=== PATIENT | female | born 1960 | race Two or more races ===

== ENCOUNTER 2017-05-18 07:35 | Inpatient (IN) | payer MEDICAID, OTHER ==
[2017-05-18] VITALS (23 sets, daily range): BP systolic 84–115; BP diastolic 48–70
[~2017-05-18] VITALS: Ht 162.6 cm; Wt 76.1 kg
[~2017-05-18 07:35] MED LIST: CARI-277; DIAZ10TA3; HYDR7.5T PO; METO10TA3; NOR10T PO; OMEP20TA44; WARF3TAB20
[2017-05-18 08:46] LABS: Basophils # (auto) 0.1 uL; Basophils % (auto) 0.6 % (0.0-2.0); Eosinophils # (auto) 0 uL; Lymphocytes # (auto) 1.7 uL; Mean Corpuscular Hemoglobin 30.7 pg (28.0-32.0); Mean Corpuscular Hgb Conc. 33.1 g/dL (32.0-36.0); Platelet Count (auto) 204 10^3/uL (140-450)
[2017-05-18 08:48] LABS: Eosinophils % (auto) 0.2 % (0.0-7.0); Hematocrit 14.2 % (36.0-46.0); Lymphocytes % (auto) 13.6 % (10.0-50.0); Mean Corpuscular Volume 92.7 fL (80.0-100.0); Monocytes % (auto) 8.5 % (0.0-12.0); Neutrophils # (auto) 9.4 uL; Neutrophils % (auto) 77.1 % (37.0-80.0); Red Blood Cells 1.53 10^6/uL (4.0-5.20); Red Cell Distribution Width 16.9 % (11.8-14.3); White Blood Cell 12.2 10^3/uL (4.4-10.8)
[2017-05-18 08:53] LABS: Hemoglobin 4.7 g/dL (12.2-16.2)
[2017-05-18 08:59] LABS: Alanine Aminotransferase 30 U/L (13-56); Albumin 3.6 g/dL (3.4-5.0); Anion Gap 13 (5-15); Aspartate Aminotransferase 88 U/L (15-37); BUN/Creatinine Ratio 20.7; Blood Alcohol < 3.0 mg/dL (0-5); Blood Urea Nitrogen 28 mg/dL (7-18); Calcium 8.2 mg/dL (8.5-10.1); Carbon Dioxide 20 mmol/L (21-32); Chloride 104 mmol/L (98-107); GFR African American 52 mL/min; GFR Non-African American 43 mL/min; Glucose 102 mg/dL (74-106); Magnesium 2.2 mg/dL (1.6-2.6); Potassium 4.3 mmol/L (3.5-5.1); Sodium 137 mmol/L (136-145)
[2017-05-18 09:00] LABS: Lactic Acid w/Reflex 3.2 mmol/L (0.4-2.0)
[2017-05-18] MEDS ORDERED: IOHEXOL 300 MG/ML 100ML BOTTLE IJ ONE (09:01)
[2017-05-18 09:03] LABS: Alkaline Phosphatase 58 U/L (45-117); Bilirubin, Total 0.7 mg/dL (0.2-1.0); Total Protein 6.5 g/dL (6.4-8.2)
[2017-05-18] MEDS ORDERED: VANCOMYCIN 1GM/250ML 250 ML IV ONE (09:30)
[2017-05-18] MEDS ORDERED: PIPERACILLIN-TAZOB 3.375GM 50 ML IV ONE (09:30)
[2017-05-18 09:56] LABS: INR > 10 (0.9-1.15)
[2017-05-18] MEDS ORDERED: phytonadione 10 MG in SODIUM CHL 0.9% 50 ML IV ONE (10:00)
[2017-05-18] MEDS ORDERED: PHYTONADIONE (VIT K)10 MG/ML 1ML VIAL SUBCUT ONE (10:15)
[2017-05-18] MEDS ORDERED: METOCLOPRAMIDE HCL 10 MG TAB PO PRN (10:15)
[2017-05-18] MEDS ORDERED: DEXTROSE (50%) 50ML SYRG IV PRN (10:30)
[2017-05-18] MEDS ORDERED: MORPHINE SULFATE 4 MG/ML SYR/VIAL IV PRN (10:30)
[2017-05-18] MEDS ORDERED: ACETAMINOPHEN 325 MG TAB PO PRN (10:30)
[2017-05-18] MEDS ORDERED: VANCOMYCIN PER PHARMACY 0 MG IV SCH (10:30)
[2017-05-18] MEDS ORDERED: LORazepam 2MG/ML-1ML VIAL IV PRN (10:30)
[2017-05-18] MEDS ORDERED: DOCUSATE SOD 100 MG CAP PO PRN (10:30)
[2017-05-18] MEDS ORDERED: NITROGLYCERIN 0.4 MG SL TAB SL PRN (10:30)
[2017-05-18] MEDS ORDERED: PANTOPRAZOLE 40 MG/10 ML VIAL IV ONE (10:30)
[2017-05-18] MEDS: SODIUM CHLORIDE 0.9% 1,000 ML IV SCH (10:51)
[2017-05-18] MEDS: InsuLIN REG 1unit/0.01ml Soln (100units/ml) SC SCH ×3 (11:08→22:15)
[2017-05-18] MEDS: ACCU-CHEK COMFORT CURVE STRIP VI SCH ×3 (11:08→22:06)
[2017-05-18] MEDS: MORPHINE SULFATE 4 MG/ML SYR/VIAL IV PRN ×3 (11:09→20:35)
[2017-05-18] MEDS: ONDANSETRON HCL 4 MG/2 ML VIAL IV PRN ×3 (11:10→20:35)
[2017-05-18 11:15] LABS: Urine Bacteria FEW /hpf (None Seen); Urine Blood 1+ /uL (Negative); Urine Specific Gravity 1.026 (1.001-1.035); Urine WBC 8 /hpf (0 - 5)
[2017-05-18 11:17] LABS: Alcohol, Urine < 3.0 mg/dL (0-5); Amphetamine Screen, Urine NEGATIVE (NEGATIVE); Barbiturate Scree,Urine NEGATIVE (NEGATIVE); Benzodiazephine Screen, Urine NEGATIVE (NEGATIVE); Cannabinoid Screen, Urine NEGATIVE (NEGATIVE); Cocaine Screen, Urine NEGATIVE (NEGATIVE); Opiate Scree,Urine NEGATIVE (NEGATIVE); Phencyclidine Screen, Urine NEGATIVE (NEGATIVE)
[2017-05-18] MEDS: VANCOMYCIN 1GM/250ML 250 ML IV SCH (12:46)
[2017-05-18] MEDS: CARISOPRODOL 350 MG TAB PO PRN (13:45)
[2017-05-18] MEDS: PIPERACILLIN-TAZOB 3.375GM 50 ML IV SCH ×2 (16:11→22:11)
[2017-05-18] MEDS ORDERED: FAMOTIDINE 20 MG TAB PO SCH (22:00)
[2017-05-19] VITALS (10 sets, daily range): BP systolic 123–143; BP diastolic 64–74
[2017-05-19] MEDS: ONDANSETRON HCL 4 MG/2 ML VIAL IV PRN (00:11)
[2017-05-19] MEDS: MORPHINE SULFATE 4 MG/ML SYR/VIAL IV PRN ×2 (00:11→21:00)
[2017-05-19] MEDS: SODIUM CHLORIDE 0.9% 1,000 ML IV SCH ×2 (03:23→20:00)
[2017-05-19] MEDS: HYDROcodone-ACET 10/325MG TAB PO PRN ×4 (03:35→13:33)
[2017-05-19] MEDS: PIPERACILLIN-TAZOB 3.375GM 50 ML IV SCH ×6 (03:54→23:12)
[2017-05-19 04:16] LABS: Basophils # (auto) 0 uL; Basophils % (auto) 0.5 % (0.0-2.0); Eosinophils # (auto) 0 uL; Eosinophils % (auto) 0.5 % (0.0-7.0); Hematocrit 25.2 % (36.0-46.0); Hemoglobin 8.7 g/dL (12.2-16.2); Lymphocytes # (auto) 1.3 uL; Lymphocytes % (auto) 14.6 % (10.0-50.0); Mean Corpuscular Hemoglobin 30.1 pg (28.0-32.0); Mean Corpuscular Hgb Conc. 34.7 g/dL (32.0-36.0); Monocytes # (auto) 0.7 uL; Monocytes % (auto) 8.3 % (0.0-12.0); Neutrophils # (auto) 6.6 uL; Neutrophils % (auto) 76.1 % (37.0-80.0); Nucleated Red Blood Cells % 0.1 %; Platelet Count (auto) 130 10^3/uL (140-450); Red Cell Distribution Width 15.8 % (11.8-14.3); White Blood Cell 8.6 10^3/uL (4.4-10.8)
[2017-05-19 04:35] LABS: Albumin 3.2 g/dL (3.4-5.0); BUN/Creatinine Ratio 21.6; Bilirubin, Total 1.1 mg/dL (0.2-1.0); Calcium 7.5 mg/dL (8.5-10.1); Potassium 3.8 mmol/L (3.5-5.1); Total Protein 6.3 g/dL (6.4-8.2)
[2017-05-19] MEDS: InsuLIN REG 1unit/0.01ml Soln (100units/ml) SC SCH ×4 (06:51→22:00)
[2017-05-19] MEDS: ACCU-CHEK COMFORT CURVE STRIP VI SCH ×5 (06:51→23:14)
[2017-05-19 07:31] LABS: Hematocrit 25.3 % (36.0-46.0); Hemoglobin 8.6 g/dL (12.2-16.2)
[2017-05-19 08:33] LABS: INR 1.06 (0.9-1.15); Partial Thromboplastin Time 26.9 sec (22.64-33.71); Prothrombin Time 11.6 sec (9.37-12.3)
[2017-05-19] MEDS: MULTIPLE VITAMIN TAB PO SCH (09:54)
[2017-05-19] MEDS: PANTOPRAZOLE 40 MG/10 ML VIAL IV SCH (09:54)
[2017-05-19] MEDS ORDERED: CLON1TAB3 PO (10:24)
[2017-05-19] MEDS ORDERED: LEVO25TA6 PO (10:24)
[2017-05-19] MEDS: VANCOMYCIN 1GM/250ML 250 ML IV SCH (13:01)
[2017-05-19] MEDS ORDERED: ENOXAPARIN SOD 80 MG/0.8ML SYRINGE SC ONE (13:15)
[2017-05-19] MEDS: CARISOPRODOL 350 MG TAB PO PRN (18:52)
[2017-05-19] MEDS: ENOXAPARIN SOD 80 MG/0.8ML SYRINGE SC SCH (22:00)
[2017-05-20] MEDS: MORPHINE SULFATE 4 MG/ML SYR/VIAL IV PRN ×6 (01:00→21:51)
[2017-05-20 05:00] VITALS: BP 155/73
[2017-05-20] MEDS: PIPERACILLIN-TAZOB 3.375GM 50 ML IV SCH (05:05)
[2017-05-20] MEDS: InsuLIN REG 1unit/0.01ml Soln (100units/ml) SC SCH (06:16)
[2017-05-20 09:00] VITALS: BP 151/75
[2017-05-20] MEDS: PANTOPRAZOLE 40 MG/10 ML VIAL IV SCH (10:45)
[2017-05-20] MEDS: MULTIPLE VITAMIN TAB PO SCH (10:45)
[2017-05-20] MEDS: ENOXAPARIN SOD 80 MG/0.8ML SYRINGE SC SCH ×2 (10:45→21:51)
[2017-05-20 11:52] LABS: Potassium 3.4 mmol/L (3.5-5.1)
[2017-05-20 13:00] VITALS: BP 138/70
[2017-05-20 13:47] LABS: Albumin 3.2 g/dL (3.4-5.0); Calcium 8.8 mg/dL (8.5-10.1)
[2017-05-20 13:49] LABS: BUN/Creatinine Ratio 21.7
[2017-05-20 13:50] LABS: Bilirubin, Total 1.1 mg/dL (0.2-1.0); Total Protein 6.5 g/dL (6.4-8.2)
[2017-05-20] MEDS ORDERED: POTASSIUM CHL 10 Meq TABLET PO ONE (14:45)
[2017-05-20 17:00] VITALS: BP 153/88
[2017-05-20] MEDS ORDERED: WARFARIN SODIUM 5 MG TAB PO ONE (17:00)
[2017-05-20] MEDS: HYDROcodone-ACET 10/325MG TAB PO PRN (19:53)
[2017-05-20] MEDS: clonazePAM 0.5 MG TAB PO PRN (19:54)
[2017-05-20 22:00] VITALS: BP 153/86
[2017-05-21] MEDS: MORPHINE SULFATE 4 MG/ML SYR/VIAL IV PRN ×6 (01:56→22:28)
[2017-05-21] MEDS: HYDROcodone-ACET 10/325MG TAB PO PRN ×3 (04:32→19:55)
[2017-05-21 05:54] LABS: Basophils # (auto) 0 uL; Basophils % (auto) 0.6 % (0.0-2.0); Eosinophils # (auto) 0.1 uL; Eosinophils % (auto) 2.4 % (0.0-7.0); Hematocrit 30.1 % (36.0-46.0); Lymphocytes # (auto) 1.3 uL; Lymphocytes % (auto) 22.5 % (10.0-50.0); Mean Corpuscular Hgb Conc. 33.1 g/dL (32.0-36.0); Mean Corpuscular Volume 90.6 fL (80.0-100.0); Monocytes # (auto) 0.5 uL; Monocytes % (auto) 9.2 % (0.0-12.0); Neutrophils # (auto) 3.8 uL; Neutrophils % (auto) 65.3 % (37.0-80.0); Nucleated Red Blood Cells % 0.2 %; Platelet Count (auto) 191 10^3/uL (140-450); Red Blood Cells 3.32 10^6/uL (4.0-5.20); Red Cell Distribution Width 15.6 % (11.8-14.3); White Blood Cell 5.8 10^3/uL (4.4-10.8)
[2017-05-21 05:57] VITALS: BP 143/89
[2017-05-21 06:14] LABS: INR 1.59 (0.9-1.15); Partial Thromboplastin Time 31.5 sec (22.64-33.71); Prothrombin Time 17.4 sec (9.37-12.3)
[2017-05-21 08:00] VITALS: BP 133/75
[2017-05-21 09:00] VITALS: BP 133/75
[2017-05-21] MEDS: MULTIPLE VITAMIN TAB PO SCH (10:00)
[2017-05-21] MEDS: PANTOPRAZOLE 40 MG TAB PO SCH (10:00)
[2017-05-21] MEDS: ENOXAPARIN SOD 80 MG/0.8ML SYRINGE SC SCH ×2 (10:08→21:58)
[2017-05-21] MEDS: clonazePAM 0.5 MG TAB PO PRN (12:37)
[2017-05-21 13:00] VITALS: BP 151/90
[2017-05-21 17:00] VITALS: BP 145/73
[2017-05-21] MEDS ORDERED: WARFARIN SODIUM 2.5 MG TAB PO ONE (17:00)
[2017-05-21 21:41] VITALS: BP 134/68
[2017-05-22] MEDS: clonazePAM 0.5 MG TAB PO PRN ×2 (00:40→15:31)
[2017-05-22] MEDS: MORPHINE SULFATE 4 MG/ML SYR/VIAL IV PRN ×4 (02:26→14:57)
[2017-05-22] MEDS: HYDROcodone-ACET 10/325MG TAB PO PRN ×2 (04:12→13:17)
[2017-05-22 04:54] VITALS: BP 141/78
[2017-05-22 06:23] LABS: INR 2.02 (0.9-1.15); Partial Thromboplastin Time 21.1 sec (22.64-33.71); Prothrombin Time 22.2 sec (9.37-12.3)
[2017-05-22 06:43] LABS: Basophils # (auto) 0 uL; Basophils % (auto) 0.6 % (0.0-2.0); Eosinophils # (auto) 0.2 uL; Eosinophils % (auto) 2.9 % (0.0-7.0); Hematocrit 30.7 % (36.0-46.0); Hemoglobin 10.2 g/dL (12.2-16.2); Lymphocytes # (auto) 1.5 uL; Lymphocytes % (auto) 22.2 % (10.0-50.0); Mean Corpuscular Hemoglobin 30.3 pg (28.0-32.0); Mean Corpuscular Hgb Conc. 33.3 g/dL (32.0-36.0); Mean Corpuscular Volume 90.8 fL (80.0-100.0); Monocytes # (auto) 0.6 uL; Monocytes % (auto) 9.3 % (0.0-12.0); Neutrophils # (auto) 4.3 uL; Nucleated Red Blood Cells % 0.1 %; Platelet Count (auto) 198 10^3/uL (140-450); Red Blood Cells 3.38 10^6/uL (4.0-5.20); Red Cell Distribution Width 15.6 % (11.8-14.3); White Blood Cell 6.6 10^3/uL (4.4-10.8)
[2017-05-22] MEDS: CARISOPRODOL 350 MG TAB PO PRN (08:59)
[2017-05-22 09:00] VITALS: BP 156/87
[2017-05-22 09:50] VITALS: BP 156/87
[2017-05-22] MEDS: PANTOPRAZOLE 40 MG TAB PO SCH (09:57)
[2017-05-22] MEDS: MULTIPLE VITAMIN TAB PO SCH (09:57)
[2017-05-22] MEDS: ENOXAPARIN SOD 80 MG/0.8ML SYRINGE SC SCH (09:57)
[2017-05-22] MEDS ORDERED: WARFARIN SODIUM 2 MG TAB PO ONE (17:00)
== END 2017-05-22 17:12 | disposition home or self-care (01) | DRG 663 ==
LOC: ER 07:35 → TELE 07:36 → TELE-WESTW 05-19 10:05 → WEST WING 05-20 12:06
PROVIDERS: ADMIT Internal Medicine; ATTEND Internal Medicine
PROC: 30233L1 Transfusion of Nonautologous Fresh Plasma into Peripheral Vein, Percutaneous Approach (ICD-10-PCS; principal; 2017-05-18)
PROC: 30233N1 Transfusion of Nonautologous Red Blood Cells into Peripheral Vein, Percutaneous Approach (ICD-10-PCS; 2017-05-18)
PROC: 30233K1 Transfusion of Nonautologous Frozen Plasma into Peripheral Vein, Percutaneous Approach (ICD-10-PCS; 2017-05-18)
PROC: 02HV33Z Insertion of Infusion Device into Superior Vena Cava, Percutaneous Approach (ICD-10-PCS; 2017-05-18)
DX: D64.9 Anemia, unspecified (principal); N17.0 Acute kidney failure with tubular necrosis; G93.41 Metabolic encephalopathy; I25.3 Aneurysm of heart; R65.10 Systemic inflammatory response syndrome (SIRS) of non-infectious origin without acute organ dysfunction; I71.2 Thoracic aortic aneurysm, without rupture; F11.20 Opioid dependence, uncomplicated; N18.3 Chronic kidney disease, stage 3 (moderate); E83.51 Hypocalcemia; S02.2XXA Fracture of nasal bones, initial encounter for closed fracture; E03.9 Hypothyroidism, unspecified; T45.515A Adverse effect of anticoagulants, initial encounter; T14.8XXA Other injury of unspecified body region, initial encounter; W18.39XA Other fall on same level, initial encounter; F41.9 Anxiety disorder, unspecified; G89.29 Other chronic pain; R29.6 Repeated falls; Z59.0 Homelessness; Z79.01 Long term (current) use of anticoagulants; Z80.49 Family history of malignant neoplasm of other genital organs; Z83.3 Family history of diabetes mellitus; Z91.19 Patient's noncompliance with other medical treatment and regimen; Z95.2 Presence of prosthetic heart valve; Y93.89 Activity, other specified; Y92.89 Other specified places as the place of occurrence of the external cause
CPT/HCPCS: 36415; 36430; 36556; 51702; 70450; 70486; 71045; 71260; 73060; 73110; 73590; 74177; 80053; 80307; 80320; 81001; 81025; 82962; 83036; 83605; 83735; 83880; 84132; 84443; 84484; 85014; 85018; 85025; 85610; 85730; 86850; 86900; 86901; 86920; 87040; 87081; 87086; 93005; 93306; 95819; 96365; 96367; 96368; 96375; 97116; 97163; 97530; 99291; C9113; J1815; J2405; J2543; J3430

== ENCOUNTER 2017-05-23 17:53 | Emergency (ER) | payer OTHER ==
[~2017-05-23] VITALS: Ht 162.6 cm; Wt 74.8 kg
[~2017-05-23 17:53] MED LIST changes: +CLON1TAB3 PO; -DIAZ10TA3; -HYDR7.5T PO; +LEVO25TA6 PO; -OMEP20TA44
[2017-05-23 19:29] VITALS: BP 165/99
[2017-05-23] MEDS ORDERED: HYDROcodone-ACET 7.5/325MG TAB PO ONE (20:15)
== END 2017-05-23 20:22 | disposition home or self-care (01) ==
LOC: ER 17:56
DX: G89.29 Other chronic pain (principal); M51.9 Unspecified thoracic, thoracolumbar and lumbosacral intervertebral disc disorder; F11.20 Opioid dependence, uncomplicated; I25.10 Atherosclerotic heart disease of native coronary artery without angina pectoris; I10 Essential (primary) hypertension; E11.9 Type 2 diabetes mellitus without complications; Z76.0 Encounter for issue of repeat prescription; Z79.01 Long term (current) use of anticoagulants; Z79.891 Long term (current) use of opiate analgesic; Z79.899 Other long term (current) drug therapy